=== PATIENT | female | born 1995 | race Two or more races ===

== ENCOUNTER 2021-08-05 13:45 | Inpatient (IN) | payer OTHER ==
[~2021-08-05] VITALS: Ht 157.5 cm; Wt 68.5 kg
[2021-08-10] MEDS ORDERED: PRENATABS RX T1 EACH PO (06:57)
== END 2021-08-12 13:44 | disposition home or self-care (01) | DRG 807 ==
LOC: LDR 08-10 05:14 → OB/GYN 08-10 05:14
PROVIDERS: ADMIT Obstetrics & Gynecology; ATTEND Obstetrics & Gynecology
PROC: 10E0XZZ Delivery of Products of Conception, External Approach (ICD-10-PCS; principal; 2021-08-10)
PROC: 0W8NXZZ Division of Female Perineum, External Approach (ICD-10-PCS; 2021-08-10)
PROC: 4A1HXCZ Monitoring of Products of Conception, Cardiac Rate, External Approach (ICD-10-PCS; 2021-08-10)
DX: O80 Encounter for full-term uncomplicated delivery (principal); Z37.0 Single live birth; Z3A.39 39 weeks gestation of pregnancy; Z20.822 Contact with and (suspected) exposure to COVID-19